=== PATIENT | female | born 1945 | race Two or more races ===

== ENCOUNTER → 2018-11-14 | Emergency (ER) | payer MEDICARE, OTHER ==
[~2018-11-14] VITALS: Ht 152.4 cm; Wt 74.8 kg
[~2018-11-14] MED LIST: CYCLOBENZAPRINE HCL 10 MG TABLET ONE; CYCLOBENZAPRINE HCL 10 MG TABLET PO ONE; ONDANSETRON ODT 4 MG TAB.RAPDIS ONE; ONDANSETRON ODT 4 MG TAB.RAPDIS SL ONE; OXYCODONE/APAP 5-325 MG TABLET ONE; OXYCODONE/APAP 5-325 MG TABLET PO ONE
--- NOTE | 2018-11-14 21:54 | NUR ---
PATIENT BIB BY [id number] FROM HOME. PATIENT C/O NECK PAIN FOR 3 DAYS, SEEN IN [facility] SENT HOME WITH FOLLOW UP WITH PCP. UNABLE TO FOLLOW UP WITH PCP TODAY AND PAIN INCREASED. PATIENT IS FARSI SPEAKING, WITH FAMILY AT BEDSIDE. PATIENT IS AWAKE, ALERT AND ORIENTED.
--- NOTE | 2018-11-14 21:55 | NUR ---
DR. QUEEN AT BEDSIDE FOR MSE.
--- NOTE | 2018-11-14 23:18 | NUR ---
Patient discharged to home in stable conditon. Written and verbal after care instructions given. Patient verbalizes understanding of instructions. INSTRUCTIONS PROVIDED TO 2 SONS AT BEDSIDE WHO TRANSLATE FOR MOTHER. PATIENT LEFT WITH STABLE GAIT.
[2018-11-14 23:19] VITALS: BP 141/66
== END | disposition home or self-care (01) ==
LOC: ER 21:23
DX: M54.2 Cervicalgia (principal); R51 Headache
CPT/HCPCS: 70450; 72125; A4663; Q0162